=== PATIENT | male | born 1995 | race Caucasian/White ===

== ENCOUNTER 2016-10-13 02:37 | Emergency (ER) | payer BC ==
[~2016-10-13] VITALS: Ht 177.8 cm; Wt 84.1 kg
[2016-10-13] MEDS ORDERED: RITALIN 20M20 MG/TAB PO (02:49)
[2016-10-13] MEDS ORDERED: TYLENOL W/COD1 UDTAB PO (04:18)
[2016-10-13] MEDS ORDERED: CEPHALEXIN500 M1 PO (04:18)
[2016-10-13 04:37] LABS: BASO # 0.1 (0.0-0.2); BASO % 0.7 % (0.0-2.0); EOS # 0.1 (0.0-0.7); EOS % 1.2 % (0-4.0); GRAN # 5.8 (1.4-6.5); GRAN % 68.7 % (42.2-75.2); HEMATOCRIT 45.2 % (42.0-52.0); HEMOGLOBIN 16.9 g/dl (13.5-18.0); LYMPH # 1.8 (1.2-3.4); LYMPH % 21.5 % (20.0-51.0); MEAN CELL VOLUME 88 fl (80.0-100.0); MEAN CORPUSCULAR HEMOGLOBIN 33 pg (27.0-31.0); MEAN CORPUSCULAR HGB CONC 37 g/dl (33.0-37.0); MEAN PLATELET VOLUME 10.3 fl (7.4-10.4); MONO # 0.6 (0.1-0.6); MONO % 7.3 % (1.7-9.3); PLATELET COUNT 262 K/mm3 (130-400); RED BLOOD COUNT 5.16 M/mm3 (4.20-5.60); REDCELL DISTRIBUTION WIDTH-CV 12.2 % (11.5-14.5); WHITE BLOOD COUNT 8.5 K/mm3 (4.8-10.8)
[2016-10-13 05:25] VITALS: BP 125/86; PULSE 84
== END 2016-10-13 05:24 | disposition home or self-care (01) ==
LOC: COL.ER 02:37
PROVIDERS: Emergency Medicine
DX: S61.412A Laceration without foreign body of left hand, initial encounter (principal); W18.30XA Fall on same level, unspecified, initial encounter; Y92.410 Unspecified street and highway as the place of occurrence of the external cause
CPT/HCPCS: J0696

== ENCOUNTER 2016-11-24 02:15 | Emergency (ER) | payer BC ==
[~2016-11-24] VITALS: Ht 177.8 cm; Wt 79.5 kg
[~2016-11-24 02:15] MED LIST: CEPHALEXIN500 M1 PO; RITALIN 20M20 MG/TAB PO; TYLENOL W/COD1 UDTAB PO
[2016-11-24 02:18] VITALS: BP 135/82; TEMP 98.2
[2016-11-24] MEDS ORDERED: ZITHROMAX Z PA250 MG PO (02:24)
[2016-11-24] MEDS ORDERED: SUDAFED30 MG PO (03:03)
[2016-11-24] MEDS ORDERED: BACTRIM DS 8001 TAB PO (03:03)
[2016-11-24 03:12] VITALS: PULSE 87
== END 2016-11-24 03:12 | disposition home or self-care (01) ==
LOC: COL.ER 02:15
DX: S02.2XXA Fracture of nasal bones, initial encounter for closed fracture (principal); F12.10 Cannabis abuse, uncomplicated; W50.0XXA Accidental hit or strike by another person, initial encounter

== ENCOUNTER 2017-03-13 22:41 | Emergency (ER) | payer BC ==
[~2017-03-13] VITALS: Ht 177.8 cm; Wt 79.5 kg
[~2017-03-13 22:41] MED LIST changes: +BACTRIM DS 8001 TAB PO; +SUDAFED30 MG PO; +ZITHROMAX Z PA250 MG PO
[2017-03-13 22:47] VITALS: TEMP 99.1
[2017-03-13 23:46] LABS: BASO # 0.1 (0.0-0.2); BASO % 0.5 % (0.0-2.0); EOS # 0.1 (0.0-0.7); GRAN # 8.5 (1.4-6.5); GRAN % 86.8 % (42.2-75.2); HEMATOCRIT 47.4 % (42.0-52.0); HEMOGLOBIN 17.6 g/dl (13.5-18.0); LYMPH # 0.6 (1.2-3.4); LYMPH % 5.6 % (20.0-51.0); MEAN CELL VOLUME 88 fl (80.0-100.0); MEAN CORPUSCULAR HEMOGLOBIN 33 pg (27.0-31.0); MEAN CORPUSCULAR HGB CONC 37 g/dl (33.0-37.0); MONO # 0.6 (0.1-0.6); MONO % 5.7 % (1.7-9.3); PLATELET COUNT 233 K/mm3 (130-400); RED BLOOD COUNT 5.38 M/mm3 (4.20-5.60); REDCELL DISTRIBUTION WIDTH-CV 12.4 % (11.5-14.5)
[2017-03-13 23:56] LABS: BILIRUBIN,TOTAL 1.6 mg/dL (0.0-1.0); CALCIUM 9.5 mg/dL (8.4-10.2); CREATININE, serum 1.1 mg/dL (0.66-1.25); TOTAL PROTEIN 8.2 gm/dL (6.4-8.2)
[2017-03-14] MEDS ORDERED: ZOFRAN ODT4 MG PO (00:23)
[2017-03-14 00:53] VITALS: BP 127/83; PULSE 101
== END 2017-03-14 00:56 | disposition home or self-care (01) ==
LOC: COL.ER 22:41
PROVIDERS: Emergency Medicine
DX: R11.2 Nausea with vomiting, unspecified (principal); R19.7 Diarrhea, unspecified; Z90.89 Acquired absence of other organs
CPT/HCPCS: J2405; J2550; J7030

== ENCOUNTER 2018-05-12 00:28 | Emergency (ER) | payer BC ==
[~2018-05-12] VITALS: Ht 177.8 cm; Wt 79.5 kg
[~2018-05-12 00:28] MED LIST changes: +ZOFRAN ODT4 MG PO
[2018-05-12 00:36] VITALS: BP 167/94; TEMP 98.1
[2018-05-12 01:29] LABS: BASO # 0.1 (0.0-0.2); BASO % 1.4 % (0.0-2.0); EOS # 0.2 (0.0-0.7); GRAN # 3.5 (1.4-6.5); GRAN % 53.1 % (42.2-75.2); HEMATOCRIT 46.3 % (42.0-52.0); HEMOGLOBIN 17.3 g/dl (13.5-18.0); LYMPH # 2.2 (1.2-3.4); LYMPH % 32.7 % (20.0-51.0); MEAN CELL VOLUME 89 fl (80.0-100.0); MEAN CORPUSCULAR HEMOGLOBIN 33 pg (27.0-31.0); MEAN CORPUSCULAR HGB CONC 37 g/dl (33.0-37.0); MEAN PLATELET VOLUME 10.4 fl (7.4-10.4); MONO # 0.6 (0.1-0.6); PLATELET COUNT 264 K/mm3 (130-400); RED BLOOD COUNT 5.21 M/mm3 (4.20-5.60); REDCELL DISTRIBUTION WIDTH-CV 12.1 % (11.5-14.5)
[2018-05-12 01:43] LABS: ALANINE AMINOTRANSFERASE 21 U/L (21-72); ALBUMIN 4.7 gm/dL (3.5-5.0); ALKALINE PHOSPHATASE 83 U/L (50-136); ANION GAP 13 mmol/L (7-16); AST,SGOT 27 U/L (15-37); BILIRUBIN,TOTAL 0.5 mg/dL (0.0-1.0); BLOOD UREA NITROGEN 12 mg/dL (9-20); CALCIUM 9.4 mg/dL (8.4-10.2); CARBON DIOXIDE 28 mmol/L (22-30); CHLORIDE 102 mmol/L (98-107); CREATININE, serum 1.02 (0.66-1.25); GLUCOSE 102 mg/dL (74-106); POTASSIUM 3.6 mmol/L (3.4-5.0); SODIUM 143 mmol/L (137-145); TOTAL PROTEIN 8.2 gm/dL (6.4-8.2)
[2018-05-12 01:55] LABS: C-REACTIVE PROTEIN < 0.5 mg/dL (0.0-0.9)
[2018-05-12 02:05] LABS: TROPONIN-I < 0.012 ng/mL (0.000-0.035)
[2018-05-12 02:36] VITALS: PULSE 71
== END 2018-05-12 02:37 | disposition home or self-care (01) ==
LOC: COL.ER 00:28
PROVIDERS: Physician Assistant
DX: R07.89 Other chest pain (principal)